=== PATIENT | male | born 1955 | race Caucasian/White ===

== ENCOUNTER 2025-02-03 10:56 | Emergency (ER) | payer OTHER ==
[~2025-02-03] VITALS: Ht 177.8 cm; Wt 105.2 kg
[2025-02-03] MEDS ORDERED: ASCO500C6 PO (11:08)
[2025-02-03] MEDS ORDERED: ASPI81TA31 PO (11:08)
[2025-02-03] MEDS ORDERED: LOSA50TA39 PO (11:08)
[2025-02-03] MEDS: IV NORMAL SALINE 1000 ML BAG IV ONE (11:13)
[2025-02-03 11:14] LABS: BASOPHILS # (AUTO) 0.1 K/UL (0.0-0.2); BASOPHILS % (AUTO) 0.8 % (0.0-2.0); EOSINOPHILS # (AUTO) 0.2 K/uL (0.0-0.7); HEMATOCRIT 40.2 % (36.7-47.1); HEMOGLOBIN 13.2 g/dL (12.5-16.3); LYMPHOCYTES # (AUTO) 2.7 K/uL (0.8-4.8); LYMPHOCYTES % (AUTO) 43.4 % (20.5-51.5); MEAN CORPUSCULAR HEMOGLOBIN 33.6 uug (23.8-33.4); MEAN CORPUSCULAR HGB CONC 33 g/dL (32.5-36.3); MEAN CORPUSCULAR VOLUME 102.5 fL (73.0-96.2); MONOCYTES # (AUTO) 0.7 K/uL (0.1-1.30); MONOCYTES % (AUTO) 11.8 % (0.0-11.0); NEUTROPHILS # (AUTO) 2.5 K/uL (1.8-8.9); PLATELET COUNT (AUTO) 222 K/uL (152-348); RED BLOOD CELL COUNT(AUTO) 3.92 MIL/uL (4.06-5.63); WHITE BLOOD COUNT (AUTO) 6.2 K/uL (3.6-10.2)
[2025-02-03] MEDS ORDERED: MAGNESIUM SULFATE/D5W 200 ML ONE (11:17)
[2025-02-03] MEDS ORDERED: ASPIRIN 81 MG TAB.CHEW ONE (11:17)
[2025-02-03 11:20] LABS: CALCIUM 8.6 mg/dL (8.5-10.1); CARBON DIOXIDE 24 mmol/L (21-32); CHLORIDE 104 mmol/L (98-107); CREATININE 1.3 mg/dL (0.6-1.3); GLUCOSE 125 mg/dL (74-106); POTASSIUM 3.6 mmol/L (3.5-5.1); SODIUM SERUM 142 mmol/L (136-145); UREA NITROGEN, BLOOD 22 mg/dL (7-18)
[2025-02-03] MEDS: ASPIRIN 81 MG TAB.CHEW PO ONE (11:22)
[2025-02-03 11:23] LABS: DIFFERENTIAL COMMENT 1
[2025-02-03] MEDS: MAGNESIUM SULFATE 2 GM in IV DEXTROSE 5% 100 ML IV ONE (11:28)
[2025-02-03 11:31] LABS: LACTIC ACID 2.3 mmol/L (0.4-2.0)
[2025-02-03 11:33] LABS: NT-PRO BNP 172 pg/mL (0-125)
[2025-02-03] MEDS ORDERED: IV NORMAL SALINE 250 ML IV ONE (12:47)
[2025-02-03] MEDS ORDERED: IOHEXOL 350 100 ML INFUS..BTL ONE (12:47)
[2025-02-03] MEDS ORDERED: SWABABLE VALVE TRANSFER SET EA MC ONE (12:47)
[2025-02-03 13:26] LABS: *BILIRUBIN,URIN 1+ (NEGATIVE); *BLOOD, URINE 3+ (NEGATIVE); *CLARITY,URINE CLOUDY (CLEAR); *COLOR,URINE DARK YELLOW (YELLOW); *KETONES,URINE NEGATIVE (NEGATIVE); *PROTEIN,URINE 3+ (NEGATIVE); *UROBILINOGEN,URINE 0.2 E.U./dl (NORMAL); LEUKOCYTE ESTERASE ,URINE NEGATIVE (NEGATIVE); NITRITE, URINE NEGATIVE (NEGATIVE); UGLUCOSE NEGATIVE (NEGATIVE)
[2025-02-03 13:36] LABS: BACTERIA,URINE MODERATE /HPF (NONE SEEN); RBC,URINE 50-80 /HPF (0-3); WBC,URINE 0-3 /HPF (0-3)
[2025-02-03 13:37] LABS: URINE AMORPHOUS URATE MODERATE /HPF
[2025-02-03 13:49] LABS: BILIRUBIN,DIRECT 0.1 mg/dL (0.0-0.2); BILIRUBIN,TOTAL 0.7 mg/dL (0.2-1.0)
[2025-02-03] MEDS ORDERED: HEPARIN SODIUM,PORCINE 5,000 UNITS/ML VIAL ONE (14:56)
[2025-02-03] MEDS ORDERED: HEPARIN/D5W DRIP 500 ML ONE (14:56)
[2025-02-03] MEDS: HEPARIN/D5W DRIP 500 ML IV PRN (15:07)
[2025-02-03 20:56] VITALS: BP 107/77; TEMP 98.2; O2SAT 98
== END 2025-02-03 20:30 | disposition left against medical advice (07) ==
LOC: ER 10:56
DX: I25.9 Chronic ischemic heart disease, unspecified (principal); I95.9 Hypotension, unspecified; E87.20 Acidosis, unspecified; I10 Essential (primary) hypertension; I48.91 Unspecified atrial fibrillation; Z79.82 Long term (current) use of aspirin; Z79.899 Other long term (current) drug therapy; Z88.8 Allergy status to other drugs, medicaments and biological substances; Z95.0 Presence of cardiac pacemaker
CPT/HCPCS: 99285; 96366; 93307; 96365; 71275; 71045; 96367; 80048; 81001; 82247; 82248; 83880; 83735; 85025; 85379; 85730; 87086; 84484 ×3; 36415; 93005; 83605 ×2; J1644 ×2; J3475 ×2; Q9967; J7040 ×2; A4606; A4663